=== PATIENT | male | born 1970 | race Two or more races ===

== ENCOUNTER 2021-10-19 16:08 | Emergency (ER) | payer SELFPAY ==
[~2021-10-19] VITALS: Ht 170.2 cm; Wt 97.5 kg
[2021-10-19] MEDS ORDERED: IBUP600T27 PO (17:22)
[2021-10-19 17:27] VITALS: BP 165/93
== END 2021-10-19 17:37 | disposition home or self-care (01) ==
LOC: ER 16:08
DX: S61.201A Unspecified open wound of left index finger without damage to nail, initial encounter (principal); W26.0XXA Contact with knife, initial encounter; Y93.89 Activity, other specified; Y92.89 Other specified places as the place of occurrence of the external cause; Y99.8 Other external cause status